=== PATIENT | female | born 1955 | race Caucasian/White ===

== ENCOUNTER → 2017-06-18 | Day surgery (SDC) | payer OTHER ==
[2017-06-18] VITALS (10 sets, daily range): BP systolic 140–153; BP diastolic 84–103; PULSE 64–70; RESP 12–17; O2SAT 91–99
[~2017-06-18] VITALS: Ht 170.2 cm; Wt 85.9 kg
[~2017-06-18] MED LIST: ASCO500C6 PO; Bupivacaine-MPF 0.5% 30 mL Inj INFILTRATE ONE; CA C1TAB77 PO; CHOL10008 PO; CYAN500 PO; CYCL10TA9 PO; DOCO1CAP3 PO; DULO20CA PO; Dexamethasone 4 mg/mL Inj ONE; EPHEDrine Sulfate 50 mg/mL Inj IVPUSH PRN; GABA-502 PO; GLUC-123 PO; HYDR-4003 PO; HYDROmorphone 1 mg/mL Inj IVPUSH PRN; Lactated Ringer's 1,000 ML IV ONE; Lactated Ringer's 1,000 ML IV SCH; Lactated Ringer's 500 ML IV PRN; Lidocaine-Prilo 2.5-2.5% 5 Gm Cream TOPICAL ONE; MELO-253 PO; MULT-1018 PO; MetoCLOpramide 5 mg/mL 2 mL Inj IVPUSH PRN; Ondansetron 2 mg/mL 2 mL Inj IVPUSH PRN; Ondansetron 2 mg/mL 2 mL Inj ONE; Phenylephrine 10,000 mCg/mL Inj IVPUSH PRN; Propofol 10,000 mCg/mL 20 mL Inj ONE; SIMV20TA4 PO; TRAZ-115 PO; fentaNYL-PF 50 mCg/mL 2 mL Inj IVPUSH PRN; fentaNYL-PF 50 mCg/mL 2 mL Inj ONE
--- NOTE | 2017-06-18 12:19 | PCM.HPANE ---
Patient Data Date of Service: Jun 18, 2017 Surgeon Admitting Provider: Attending Provider:Maciej Givens MD Primary Care Physician:Bhavya Mata PA-C Other Provider:Lokesh Gant Anesthesia Reason for Visit Left Arm Melanoma Ht/WT & BMI Height (Feet): 5 Height (Inches): 7.00 Weight (Kilograms): 85.9 Body Mass Index 29.00 Allergies Coded Allergies: No Known Allergies (Unverified , 06/11/17) Past Anesthesia History Anesthesia History: Denies:: Abnormal Airway, Anesthesia Reactions, Difficult Intubation, Fam Anesthesia Reaction Diabetes History Hx Diabetes?: No MRSA MRSA: No Medications Hypertension Medication: No Home Meds Incl Beta Giovanni: No Reported Medications Cholecalciferol (Vitamin D3) (Vitamin D3)1,000 Unit Tab.chew1,000 Unit PO DAILY 06/11/17 Ascorbic Acid (Vitamin C)500 Mg Capsule.er500 Mg PO DAILY 06/11/17 Cyanocobalamin (Vitamin B12)500 Mcg Tablet1,000 Mcg PO DAILY 06/11/17 Trazodone 50 Mg Ubangg60 Mg PO HS Ref 0 06/11/17 Simvastatin 20 Mg Dxvvmn50 Mg PO HS Ref 0 06/11/17 Multivitamin (Multi Vitamin Daily)1 Each Tablet1 Each PO DAILY 30 Days Ref 0 06/11/17 Meloxicam 15 Mg Wpvfkx22 Mg PO DAILY 30 Days Ref 0 06/11/17 Hydrocodone-Acetaminophen 5-325 mg 1 Each Tablet1 Tablet PO Q6H PRN For Pain Ref 0 06/11/17 Gluc/Sergio-MSM#2/C/D3/Jorge/Born (Klwedeubvx-Lstxfjmevap-AXF Tab)1 Each Tablet1 Each PO DAILY 06/11/17 Gabapentin 300 Mg Negjhdf707 Mg PO QPM Ref 0 06/11/17 Gabapentin 300 Mg Wkqojby840 Mg PO QAM Ref 0 06/11/17 Docosahexanoic Acid/Epa (Fish Oil Concentrate Softgel)1 Each Capsule2 Each PO DAILY 06/11/17 Duloxetine (Cymbalta)20 Mg Soywnow29 Mg PO HS Ref 0 06/11/17 Cyclobenzaprine 10 Mg Oevmai21 Mg PO BID PRN Spasm 06/11/17 Ca Carb/Vit D3/Mag Ox/Zn Oxide (Adrián Mag Zinc + D3 Tablet)1 Each Tablet1 Each PO DAILY 06/11/17 History History of ENT Problems?: No HEENT History: Denies:: Abnormal Airway Cataracts Difficult Intubation Dysphagia Glaucoma Hearing Problem Sinus Problem TMJ Denture Type: None Teeth Condition: Within Normal Limits Hx of Heart Problems?: No Cardiovascular History: Denies:: AICD Abdominal Aortic Aneurism Atrial Fibrillation Cardiac Surgery Chest Pain Congestive Heart Failure Coronary Artery Disease Edema Heart Murmur Hypertension Irregular Heartbeat Pacemaker Peripheral Vascular Rheumatic Fever Thrombophlebitis Valvular Heart Disease Hx of Respiratory Problem?: No Respiratory History: Denies:: Asthma COPD Emphysema Oxygen Administration Pneumonia Tuberculosis Use of C-PAP Machine Use of Inhalers / NEBS Hx Neurologic Problems?: No Neurological History: Denies:: Alzheimer's Disease CVA Headaches Multiple Sclerosis Parkinson's Disease Seizures TIA Hx of GI Problems?: No Hx of Problems?: No Genitourinary History: Denies:: Kidney Stones Urinary Tract Infection HX of Peritoneal Dialysis: No Female Hx: Denies:: Currently (post menopausal ) Problems with Breasts? (benign tumor right breast ) Skin History: Positive for:: History Skin Disorders? (left arm wide excision melanoma) Denies:: Pressure Ulcers Hx Musculoskeletal Problems?: Yes Musculoskeletal History: Positive for:: Fibromyalgia Osteoarthritis Denies:: Back Injury Degenerative Joint Joint Replacement Musculoskeletal Trauma Systemic Lupus Hx of Psycho/Social Problems?: Yes Psycho Social History: Positive for:: Anxiety Hx Depression Hx Surgeries?: Yes (wide excision left arm, ) Hx Any Other Health Problems?: Yes Other History: Positive for:: Cancer (melanoma left arm current arm) Denies:: Thyroid Disease History Blood Transfusions: Positive for:: Accept Blood Products? Denies:: Blood Transfusions Hx Diabetes: No Hx Alcohol Use: YesAlcoholic Drinks Per Day: two drinks week/weekendsHx Substance Use: NoHave You Smoked inLast 12 mo: No Stop/Bang Treated for Sleep Apnea?: No Do You Have a CPAP Machine?: No S-Snoring: Do You Snore Loudly: No T-Tired: feel tired, fatigued: No O-Obsered: Observed not breath: No P-Blood Pressure: treated: No B- Body Mass Index > 35 kg/m2: No A- Age over 50: Yes N- Neck Large Circumference: No G- Gender Male: No MALIKA Total Score: 1 MALIKA Risk Assessment: Low Risk, <3 Yes Risk Assessment Category Category 1A: Patient has history of documented sleep apnea, and HAS NOT received any narcotic, sedative or anesthesia administration during this stay. Category 1B: Patient has history of documented sleep apnea, and HAS received any narcotic , sedative or anesthesia administration during this stay Category 2: Patient has SUSPECTED Obstructive Sleep Apnea, and HAS received any narcotic , sedative or anesthesia administration during this stay. Category 3: Patient has SUSPECTED Obstructive Sleep Apnea and HAS NOT received narcotic, sedative or anesthesia administration during this stay. Category 4: Outpatient in Procedural Areas with known sleep apnea or who screen positive for High Risk via the STOP/BANG questionnaire. Exam Exam Vital Signs Vital Signs Date Time Temp Pulse Resp B/P Pulse Ox O2 Delivery O2 Flow Rate FiO2 06/18/17 08:00 70 17 148/103 97 Room Air General Appearance: Alert, Oriented X3, Cooperative, No Acute Distress HEENT/AIRWAY: MP 2 Lungs: Clear to Auscultation, Normal Air Movement Heart: Exam Unremarkable, Regular Rate/Rhythm, No Murmurs/Rubs/Gallops Meds/Labs/Diagnostics Admission Meds Current Medications Lidocaine/ Prilocaine (Emla Cream) 1 applic STK-MED ONCE TOPICAL Last administered on 06/18/17t 07:45; Start 06/18/17 at 07:37; Stop 06/18/17 at 07:39 ; Status DC Plan Impression Patient chart reviewed, patient interviewed and anesthestic plan with risks, benefits, and alternatives discussed, and informed consent obtained. NPO per Anesth. Guidelines: Yes ASA Physical Status: ASA2 Mod Systemic Disease Anesthetic Plan: GA Bene/Risks/Altern/Consents: Yes HP Complete Prior to Induction: Yes Sandor Blount MD Jun 18, 2017 12:19
--- NOTE | 2017-06-18 15:53 | DRSVH ---
PROCEDURE: [facility] ([id number]) RADIOPHARMACEUTICAL: 0.47 mCi and 0.52 mCi Millipore filtered Tc-99m sulfur colloid. INDICATIONS: L arm melanoma TECHNIQUE: Written informed consent was obtained. The area around the region of concern on the left upper arm w as prepped and draped in a sterile fashion. Tc-99m sulfur colloid was injected intra-dermally and naidu bcutaneously around the biopsy scar. Images were obtained approximately 60 and 120 minutes after trac er injection. A repeat injection was performed approximately 5 hours after initial injection due to nonvisualization of a lymph node on the initial images with possible activity detected intraoperative ly. FINDINGS: Images obtained following the initial injection demonstrate no definite lymph node uptake. 4 injecti on sites are noted in the upper arm. Following the 2nd injection, there is uptake demonstrated within a left axillary lymph node. IMPRESSION: 1. Administration of subdermal radiotracer around the site of melanoma for intra-operative sentinel lymph node localization. 2. Localization of uptake within a left axillary lymph node. Dictated by: Roque Graham M.D. on 06/18/2017 at 15:34 Approved by: Roque Graham M.D. on 06/18/2017 at 15:51
--- NOTE | 2017-06-18 16:47 | PCM.DISURG ---
Surgical Discharge Instruction Date of Service Jun 18, 2017 Dates of Hospitalization Date of Hospital Admission Providers Admitting Physician: Primary Care Physician: Bhavya Mata PA-C Attending Physician: Maciej Givens MD Discharge Diagnosis Discharge Diagnosis Melanoma Post Operative diagnosis Melanoma Diet Discharge Diet: No restrictions Activity Discharge Activity-General: Elevate extremity (left arm if swelling occurs), No driving while taking narcotic Dressing and Incisional Care Dressing Care: Allow Steri Stripes to fall off (usually takes 1-2 weeks), Remove outer dressing after 24 hrs Hygiene: May shower (and pat the steri strips dry.) Follow Up Plan Follow Up Plan We will call you with pathology results. Mid-level Provider (F9): Kenji Ingram PA-C Follow-up appointment: Weeks (2-3) Call your provider for: Increasing wound pain, Discharge @ incision, pus discharge Chalino Lyon MD Jun 18, 2017 16:47
--- NOTE | 2017-06-18 17:57 | PCM.ANEP1 ---
Post Anesthesia PACU Phase 1 Assessment Vital Signs Vital Signs Date Time Temp Pulse Resp B/P Pulse Ox O2 Delivery O2 Flow Rate FiO2 06/18/17 17:54 96 Room Air 06/18/17 17:19 64 16 140/84 91 Room Air 06/18/17 17:15 67 13 145/85 94 Room Air 06/18/17 17:10 36.4 64 12 141/90 95 Room Air 06/18/17 17:00 36.3 67 12 149/87 96 Room Air 06/18/17 16:55 68 13 153/86 99 Simple Mask 8 06/18/17 16:50 69 17 150/90 98 Simple Mask 8 06/18/17 16:46 36.9 70 12 151/88 99 Simple Mask 8 06/18/17 12:32 68 17 144/89 97 Room Air Anesthetic Administered: GA Level of Alertness: Awake, talking Pain: Yes Nausea or Vomiting: No CV Function & Hydration Stable: Yes Airway Device: Oxygen Delivery: Room Air Lungs: Clear to Auscultation, Normal Air Movement PACU Phase 2 Assessment Complications: No Follow up Care: No Patient Instructions Provided: N/A Sandor Blount MD Jun 18, 2017 17:57
--- NOTE | 2017-06-19 07:32 | PCM.SURGOP ---
Surgical Operative Report Date of Service: Jun 18, 2017 Pre Operative Diagnosis Left arm melanoma Post Operative Diagnosis Same Procedure: Left axillary sentinel lymph node biopsy Surgeon and Recreation Program Specialist: Surgeon: Maciej Givens MD Assistants: Chalino Lyon MD PGY 4 Indication for Procedure 61-year-old woman who recently underwent wide excision of a left upper arm melanoma, which was 0.94 mm thick, Igor level III, with no mitoses or ulceration. Her closest peripheral margin was 8 mm. Deep margins were clear. On the day of surgery, she underwent 2 separate nuclear medicine injections, because after approximately 6 hours, there was no mapping from the first injection. After second injection, she had mapping to the left axilla. After discussion of risks and benefits, she agreed to proceed with left axillary sentinel lymph node biopsy. Findings: There was a single sentinel node in the deep left axilla, not pathologically enlarged. It had an ex vivo gamma count of 145, compared to a background count of 9. Procedure Details Preoperatively, the patient underwent 2 separate nuclear medicine injections, and ultimately had mapping to the left axilla. Assessment with the gamma probe revealed a weak but detectable signal in the left axilla at the level of the skin. She underwent smooth induction of general anesthesia with an LMA. 2 mL of methylene blue diluted 50% with saline was injected into the left upper arm, medial to the incision. The upper arm was massaged for several minutes. She was then prepped and draped in wide sterile fashion. A procedural timeout was performed according to the SCOAP checklist, and all were found to be in agreement. A transverse incision was made in the left axilla. Dissection was carried through the subcutaneous tissue until the axillary fascia was incised. Using the gamma probe as a guide, the area of maximum radiotracer activity was identified and circumferentially dissected free from the surrounding tissue. It had a faint blue color. There were no other obvious blue lymph nodes. The lymph node was dissected free from the surrounding tissues with electrocautery. Ex vivo, it had a gamma count of 145. The background count in the left axilla was 9. The left axillary sentinel lymph node was sent for permanent pathology. Hemostasis was adequate. The axillary fascia was closed with a 3-0 Vicryl interrupted suture. The skin incision was closed with a running 4-0 Vicryl subcuticular stitch. Steri-Strips and sterile dressings were applied. At the end of the case all needle and sponge counts were correct 2. The patient was awakened from anesthesia without difficulty, and taken to the recovery room in satisfactory condition, having tolerated the procedure well. Complications There were no periprocedural complications identified. Surgical Specimen Removed: Yes Specimen sent to Pathology: Yes Surgical Specimen description: Left axillary sentinel lymph node Anesthetic Plan: GA Grafts, Implants: None Output, Estimated Blood Loss: 20 Blood Administration during naidu: No Drains: None Catheters: None copies to: Bhavya Mata PA-C; Leno Robbins PA-C, Joshua D MD Jun 19, 2017 07:31
== END | disposition home or self-care (01) ==
LOC: SAS 07:22
PROVIDERS: ATTEND Student in an Organized Health Care Education/Training Program
DX: C43.62 Malignant melanoma of left upper limb, including shoulder (principal); M79.7 Fibromyalgia; M19.90 Unspecified osteoarthritis, unspecified site; F41.9 Anxiety disorder, unspecified; F32.9 Major depressive disorder, single episode, unspecified; Z79.899 Other long term (current) drug therapy
CPT/HCPCS: 38525; 78195; A9541; J1100; J1170; J2405; J2704; J3010; J7120